=== PATIENT | female | born 1960 | race Caucasian/White ===

== ENCOUNTER 2020-05-20 11:29 | Outpatient (REF) | payer OTHER, SELFPAY ==
[2020-05-20 12:09] LABS: MANUAL DIFF FLAG NO
[2020-05-20 12:16] LABS: Basophils Percent Auto 0.6 % (0-2); Eosinophils Absolute Auto 0.1 X10*3/uL (0.0-0.4); Eosinophils Percent Auto 2.1 % (0-4); Hematocrit 42.1 % (37-47); Hemoglobin 13.7 g/dl (12.0-16.0); Imm Gran Abs Auto 0.02 X10*3/uL (0.00-0.03); Imm Gran Pct Auto 0.3 % (0.0-0.4); Lymphocytes Absolute Auto 2.5 X10*3/uL (1.2-4.9); Lymphocytes Percent Auto 37.1 % (20-40); Mean Corpuscular HGB Conc 32.5 g/dl (31.0-35.0); Mean Corpuscular Hemoglobin 26.4 pg (27.0-33.0); Mean Corpuscular Volume 81.3 fL (80-98); Mean Platelet Volume 11.6 fL (9.4-12.3); Monocytes Absolute Auto 0.4 X10*3/uL (0.1-1.2); Monocytes Percent Auto 5.5 % (2-11); Neutrophils Absolute Auto 3.7 X10*3/uL (2.0-8.3); Neutrophils Percent Auto 54.4 % (45-73); Platelet Count 358 X10*3/uL (160-400); Red Blood Count 5.18 X10*6/uL (4.20-5.50); White Blood Count 6.7 X10*3/uL (4.8-10.8)
[2020-05-20 13:36] LABS: Alanine Aminotransferase 11 U/L (0-31); Albumin Level 4.3 g/dL (3.5-5.0); Alkaline Phosphatase 88 U/L (39-117); Anion Gap 13 (12-20); Aspartate Amino Transferase 14 U/L (5-31); Bilirubin Total 0.3 mg/dL (0.0-1.0); Blood Urea Nitrogen 20 mg/dL (9-16); Calcium 9.5 mg/dL (8.4-10.2); Carbon Dioxide 24 mmol/L (22-29); Chloride 107 mmol/L (96-108); Cholesterol 212 mg/dL; Estimated Glomerular Filt Rate > 60; Glucose Random 91 mg/dL (60-115); HDL Cholesterol 54 mg/dL; LDL Cholesterol Calculated 140 mg/dl; Potassium 4.7 mmol/l (3.3-5.1); Sodium 139 mmol/L (135-145); Total Protein 6.9 g/dL (6.5-8.0); Triglycerides 91 mg/dL
== END 2020-05-20 11:30 | disposition home or self-care (01) ==
LOC: HO.LAB 11:29
PROVIDERS: PCP Family Medicine; Visit Provider Family Medicine
DX: R07.89 Other chest pain (principal)
CPT/HCPCS: 36415; 80053; 80061; 85025

== ENCOUNTER 2021-02-23 11:45 | Outpatient (RCR) | payer OTHER, SELFPAY ==
[2021-02-07 13:08] VITALS: BMI 33.8
--- NOTE | 2021-02-07 14:28 | PC.ADMIT ---
Patient is a 61 year old single female who self referred to [facility] d/t increase in depression symptoms with, per Integrated assessment, SI-thoughts to slit wrists or throw self from railing on the 7th floor however patient denied intent to follow through and agreed to contact staff if feeling unsafe. Patient told this mortgage underwriter that her family is her protective factor stating, it would kill my family therefore she would not follow through. Patient has been in treatment at [facility] in the past and found it helpful. Patient reports stressors related to the pandemic including loneliness, and isolation. Patient also reported financial stressors, pain issues r/t medical issues that are complicated d/t insurance changes last year thus unable to find new providers that patient trusts to perform needed surgery for bilateral knee replacements and R rotator cuff surgery along with needing Hiatal hernia repair. Patient also stated she was told that she needed to have her teeth repaired d/t infection before she is eligible for the surgery. Patient stated her teeth are damaged d/t increased sugar intake. Patient reports she is in the process of having dentures made. Patient stated her appointments that were scheduled for surgery on her knees was changed d/t the pandemic and there has been a shortage of staff thus unable to get needed appointments . Patient did state she has an appointment with her PCP on February 18, 2021. Patient also stated that she used to have a health center assistant however did not feel comfortable during the pandemic to let anyone in her house however since she has had the Covid Vaccine is feeling more comfortable now and is thinking about calling to make an appointment for a group home counselor again. Reports issues with hoarding and compulsive binge eating and TV watching since the pandemic with weight gain of 20 lbs with in the past 2 months. Also is stressed regarding her cat as she stated her cat has a UTI and her vet will not prescribe medication without seeing the cat and is unable to get in to see the Vet until March d/t staffing issues. Patient is alert and oriented x4. Presents with depressed mood, anxious, irritable affect. Denied SI at present. Reports thoughts do come up however would not follow through as her family is her protective factor. Patient does not want support at this time with finding a new PCP or home health registered nurse first assistant etc. Patient aware that she can contact staff if she changes her mind. Medications reconciled with patient and patient's pharmacy.
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
--- NOTE | 2021-02-14 11:30 | PC.NURSE ---
With pt's permission, I called [facility] health to see if they have an binge eating IOP that will take her insurance. They said they do have an IOP specifically for binge eating, and that it is 3 days per week from 5:30 to 8pm. I can fax demographic information to [phone] and they will reach out to pt to set up an intake. They do take [facility].
--- NOTE | 2021-02-14 11:37 | PC.NURSE ---
At pt's request, I called [facility] to refer pt for a [facility] worker. Staff said they will email me paperwork to fill out for this.
--- NOTE | 2021-02-16 12:41 | HO.PHPPROGNO ---
Subjective Subjective Date of Service: 02/16/21 Reason For Visit: PTSD, Depression, OCD Interim History: The patient reported that she started Risperdal 0,5 mg with no side effects but still symptomatic with binge eating of carbohydrates. We discussed her previous trials of AD and apparently she had 2 courses of TCA's with imipramine, the first time 20 years ago and later a few years ago. She has never tried clomipramine Review of Systems Review of Systems Yes all other systems are reviewed and are negative Mental Status Exam Mental Status Exam Patient Appearance: Well Grooomed Patient Orientation: Person, Place, Time and Situation Level of Consciousness: Awake Patient Behavior: Appropriate Mood Description: Appropriate and Anxious Affect Description: Constricted Patient Cognition Impaired: No Ability to Follow Directions: Good Speech Pattern: Clear Memory Description: Intact Delusions: Not Present Thought Process: Goal Oriented Thought Content: positive for Obsessional Thoughts Depressive Symptoms: Increased Anxiety Judgement: Fair Diagnostics Vital Signs (24Hr): Body Mass Index 33.8 Assessment & Plan Assessment & Plan (1) MDD (major depressive disorder), recurrent episode, severe: Status: Acute Code(s): F33.2 - Major depressive disorder, recurrent severe without psychotic features Assessment and Plan: Adult female with PTSD, MDD and hoarding behavior, recently started on Risperdal. Plan: Increase Risperdal up to 1 mg po daily. In the future, consider the use of Clomipramine for OCD like symptoms (2) PTSD (post-traumatic stress disorder): Status: Acute Code(s): F43.10 - Post-traumatic stress disorder, unspecified (3) Binge eating disorder: Status: Acute Code(s): F50.81 - Binge eating disorder (4) Hoarding disorder: Status: Acute Code(s): F42.3 - Hoarding disorder Certification I certify that partial hospital treatment is medically necessary due to the symptoms and problems resulting from the patient's mental illness and the failure to treat the patient at the partial hospital level of care would likely result in the patient requiring inpatient psychiatric care which could not be prevented at a less intensive level of care. Greater than 50% of the session was spent on counseling and/or coordination of care Discharge Plan Discharge Attending provider: Nuno Sue Primary Care Provider: Arnulfo Guerrero Medications: New risperidone [Risperdal] 1 mg tablet 1 mg PO DAILY 14 Days Qty: 14 RF: 0 Discontinued risperidone [Risperdal] 0.5 mg Tablet 0.5 mg PO DAILY PRN (Reason: Anxiety) RF: 0 No Action rabeprazole 20 mg Tablet,Delayed Release (Dr/Ec) 20 mg PO BID RF: 0 Referrals: Arnulfo Guerrero MD [Primary Care Provider] - 1 Week Telehealth Telehealth Location of provider rendering services: practice address Location of patient: address on file Patient Identification confirmed using: Name, : No Telehealth method: video Patient verbally consented to treatment: Yes Patient verbally consented to billing insurance company: Yes Patient informed of any privacy concerns related to visit: No Time spent with patient (mins): 15
--- NOTE | 2021-02-23 12:42 | HO.PHPPROGNO ---
Subjective Subjective Date of Service: 02/23/21 Reason For Visit: PTSD, Depression, OCD Subjective Notes: Conditional Voluntary Interim History: The patient reported feeling detached with the Risperdal and she has been still eating as comfort. She has gained 30 lb in the last 3 months. Mental Status Exam Mental Status Exam Patient Appearance: Well Grooomed Patient Orientation: Person, Place, Time and Situation Level of Consciousness: Awake Patient Behavior: Appropriate Mood Description: Calm Affect Description: Calm and Depressed Patient Cognition Impaired: No Ability to Follow Directions: Good Speech Pattern: Clear Memory Description: Intact Hallucinations: None Delusions: Not Present Thought Process: Goal Oriented Thought Content: positive for Circumstantial and positive for Goal Oriented Judgement: Fair Diagnostics Vital Signs (24Hr): Body Mass Index 33.8 Assessment & Plan Assessment & Plan (1) Binge eating disorder: Status: Acute Code(s): F50.81 - Binge eating disorder (2) Hoarding disorder: Status: Acute Code(s): F42.3 - Hoarding disorder Assessment and Plan: Adult female with OCD and hoarding disorder, failed to Risperdal, now on Clomipramine Certification I certify that partial hospital treatment is medically necessary due to the symptoms and problems resulting from the patient's mental illness and the failure to treat the patient at the partial hospital level of care would likely result in the patient requiring inpatient psychiatric care which could not be prevented at a less intensive level of care. Greater than 50% of the session was spent on counseling and/or coordination of care Discharge Plan Discharge Attending provider: Nuno Sue Primary Care Provider: Arnulfo Guerrero Medications: New clomipramine 25 mg capsule 25 mg PO DAILY 7 Days Qty: 7 RF: 1 Discontinued risperidone [Risperdal] 0.5 mg Tablet 0.5 mg PO DAILY PRN (Reason: Anxiety) RF: 0 No Action rabeprazole 20 mg Tablet,Delayed Release (Dr/Ec) 20 mg PO BID RF: 0 Referrals: Arnulfo Guerrero MD [Primary Care Provider] - 1 Week Telehealth Telehealth Location of provider rendering services: practice address Location of patient: address on file Patient Identification confirmed using: Name, : Yes Telehealth method: video Patient verbally consented to treatment: Yes Patient verbally consented to billing insurance company: Yes Patient informed of any privacy concerns related to visit: No Time spent with patient (mins): 15
--- NOTE | 2021-02-23 14:10 | PC.NURSE ---
I called pt and left a message asking her to pls call and offering some more time on program. Pt continues to struggle with symptoms and is making effective use of program.
[2021-02-28 15:20] VITALS: BMI 33.8
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
[2021-02-28 17:08] VITALS: BMI 33.8
--- NOTE | 2021-02-28 17:44 | PC.ADMIT ---
61 year old female readmit to PHP today. Patient reports worsening anxiety, depression, compulsive eating. Reports unplanned weight gain, poor sleep, only four hours most nights. States she feels exhausted. Patient denies SI or HI. Reports no AH/VH. States PHP helpful and is in agreement with readmission. Medications reconciled with pharmacy and patient.
== END 2021-02-25 23:55 | disposition home or self-care (01) ==
LOC: HO.PHPA 11:45
PROVIDERS: PCP Family Medicine; Visit Provider Psychiatry & Neurology Psychiatry
DX: F33.2 Major depressive disorder, recurrent severe without psychotic features (principal); F42.3 Hoarding disorder; F50.81 Binge eating disorder; F43.10 Post-traumatic stress disorder, unspecified; Z79.899 Other long term (current) drug therapy
CPT/HCPCS: 90791; 90853

== ENCOUNTER 2021-03-04 11:45 | Outpatient (RCR) | payer OTHER, SELFPAY ==
--- NOTE | 2021-02-28 14:22 | PC.NURSE ---
Case re-opened in treatment team
[2021-03-01 10:08] VITALS: BMI 33.8
--- NOTE | 2021-03-01 11:56 | PC.ADMIT ---
61 Year old female readmit to [facility]. History of Depression, Anxiety, PTSD. Patient lives by herself, has supportive family. Does not work is on Disability. Patient reports worsening anxiety, depression and compulsive eating. Patient reports she has gained 20lbs in last two months. Patient states she is glad for the readmission to [facility], states recent participation in program has been helpful Patient has hx of alcohol use disorder but states she has been sober since 1983 Patient denies any substance use, states she used marijuana once in December All medications were reconciled and reviewed with patient. Patient states understanding of medication teaching. Patient medical history includes: Arthritis of both knees will need bilateral TKR per patient, Asthma, Fibromyalgia, GERD, Hiatal Hernia, Injury of right rotater cuff surgically repaired, shoulder surgery, Hysterectomy. Patient denies SI, states she would reach out for help if she had feelings of harming herself. Patient states she is close to her siblings and would never do that to her family Patient denies hallucinations. Admission orders per DANYELLE Echeverria.
--- NOTE | 2021-03-02 12:43 | P.PNPSP_ITS ---
Subjective Subjective Date of Service: 03/02/21 Reason For Visit: PTSD, Depression, OCD Interim History: The patient reported mild oversedation with Clomipramine, so far, still with OCD symptoms and overeating. Review of Systems Acute medical concerns: No Medical Review of Systems: unchanged Mental Status Exam Mental Status Exam Patient Appearance: Well Grooomed Patient Orientation: Person, Place, Time and Situation Level of Consciousness: Awake and Appropriate Patient Behavior: Appropriate Mood Description: Calm Affect Description: Anxious Patient Cognition Impaired: No Ability to Follow Directions: Good Speech Pattern: Clear Memory Description: Intact Hallucinations: None Delusions: Not Present Thought Process: Goal Oriented Thought Content: positive for Intact Judgement: Fair Diagnostics Vital Signs (24Hr): Body Mass Index 33.8 Assessment & Plan Assessment & Plan (1) MDD (major depressive disorder), recurrent episode, severe: Status: Acute Code(s): F33.2 - Major depressive disorder, recurrent severe without psychotic features Assessment and Plan: Middle age female with MDD, Binge eating disorder, remote alcohol use disorder and hoarding, referred from primary prescriber for exacerbation of her symptoms. Started on Clomipramine with fair tolerability but still symptomatic. Plan: Increase Clomipramine up to 50 mg po qhs Consider Naltrexone for binge eating/OCD like symptoms? (2) PTSD (post-traumatic stress disorder): Status: Acute Code(s): F43.10 - Post-traumatic stress disorder, unspecified (3) Binge eating disorder: Status: Acute Code(s): F50.81 - Binge eating disorder (4) Hoarding disorder: Status: Acute Code(s): F42.3 - Hoarding disorder Certification I certify that partial hospital treatment is medically necessary due to the symptoms and problems resulting from the patient's mental illness and the quiana lure to treat the patient at the partial hospital level of care would likely result in the patient requiring inpatient psychiatric care which could not be prevented at a less intensive level of care. Greater than 50% of the session was spent on counseling and/or coordination of care Discharge Plan Discharge Attending provider: Nuno Sue Medications: New clomipramine 50 mg capsule 50 mg PO DAILY 14 Days Qty: 14 RF: 0 Discontinued clomipramine 25 mg capsule 25 mg PO DAILY 7 Days Qty: 7 RF: 1 No Action rabeprazole 20 mg Tablet,Delayed Release (Dr/Ec) 20 mg PO BID RF: 0 estradiol [Yuvafem] 10 mcg tablet 10 mcg vaginal DIRECTED RF: 0 Telehealth Telehealth Location of provider rendering services: practice address Location of patient: address on file Patient Identification confirmed using: Name, : Yes Telehealth method: video Patient verbally consented to treatment: Yes Patient verbally consented to billing insurance company: Yes Patient informed of any privacy concerns related to visit: No Time spent with patient (mins): 15
--- NOTE | 2021-03-04 14:14 | PC.NURSE ---
I called and left a message for pt's therapist at [facility], Cortez Ulrich ([phone]). I informed him of pt's successful discharge from [facility] today.
--- NOTE | 2021-03-04 15:00 | P.PNPSP_ITS ---
Subjective Subjective Date of Service: 03/04/21 Reason For Visit: PTSD, Depression, OCD. I'm tired but okay . Subjective Notes: Bautista Warning Guardianship: No Medical Problems Affecting Mental Status: No Interim History: Patient reports she is still adjusting to increased clomipramine dose, and taking it at night. She says that it appears to be helping manage her OCD, but that she is experiencing some sedation as my body adjusts to it . She states that she feels ?a little bit overwhelmed regarding her OCD, hoarding, and waiting for the housing to complete their home inspection. Otherwise, she reports she continues with depression, but states that it is manageable. Denies any thoughts of harm to self or others, no safety concerns. No overeating reported. No refills needed. Patient will continue with outpatient providers going forward, as today is last day in [facility]. Medication Compliance: Yes Side effects from medications: Yes (some mild sedation, reports it is minimal) Attending Groups: Yes Review of Systems Review of Systems Well-nourished, well-developed female, no apparent distress. Reports some mild sedation as she is adjusting to new medication dose, otherwise review of systems negative. Yes all other systems are reviewed and are negative Mental Status Exam Mental Status Exam Patient Appearance: Well Grooomed and Fatigued (somewhat, reports it is manageable, mild. ) Patient Orientation: Person, Place, Time and Situation Level of Consciousness: Appropriate and Alert Patient Behavior: Appropriate, Cooperative and Good Eye Contact Mood Description: Appropriate, Depressed and Anxious Affect Description: Appropriate, Depressed and Anxious Patient Cognition Impaired: No Ability to Follow Directions: Excellent Speech Pattern: Clear, Appropriate, Spontaneous Speech and Coherent Memory Description: Intact Hallucinations: None Delusions: Not Present Thought Process: Intact, Goal Oriented and Linear Thought Content: positive for Intact, positive for Obsessional Thoughts (present, although lessened/improved), positive for Goal Oriented and positive for Linear Depressive Symptoms: Increased Anxiety, Diff. Making Decisions, Changes in Appetite and Thoughts of /Suicide (denies any thought of self-harm) Judgement: Good Judgement and Insight: Overall judgment and insight have improved. Diagnostics Vital Signs (24Hr): Body Mass Index 33.8 Assessment & Plan Assessment & Plan (1) MDD (major depressive disorder), recurrent episode, severe: Status: Acute Code(s): F33.2 - Major depressive disorder, recurrent severe without psychotic features Assessment and Plan: Patient reports overall symptoms have improved somewhat. No complaints at this time. Patient has outpatient appointments are scheduled. Also [facility]. No medication changes at this time. No safety concerns. (2) Binge eating disorder: Status: Acute Code(s): F50.81 - Binge eating disorder (3) Hoarding disorder: Status: Acute Code(s): F42.3 - Hoarding disorder Patient educated on: diagnosis, medication risk/benefits and therapeutic strategies Informed Consent: understands Reason for contiued partial hosp. stay Substantial Risk for: stable for discharge Certification I certify that partial hospital treatment is medically necessary due to the symptoms and problems resulting from the patient's mental illness and the failure to treat the patient at the partial hospital level of care would likely result in the patient requiring inpatient psychiatric care which could not be prevented at a less intensive level of care. Greater than 50% of the session was spent on counseling and/or coordination of care Discharge Plan Discharge Attending provider: Nuno Sue Additional Instructions: Appointment with therapist, Cortez watters at [facility] ([phone]) on , 03/10/21 at 10am. Appointment with medication provider Dinah Segundo MD ([phone]) on 03/23/21 at 12 noon. Intake appointment for [facility]o binge eating disorder [facility] on 03/16/21 at 10am. Medications: New clomipramine 50 mg capsule 50 mg PO DAILY 14 Days Qty: 14 RF: 0 Discontinued clomipramine 25 mg capsule 25 mg PO DAILY 7 Days Qty: 7 RF: 1 No Action rabeprazole 20 mg Tablet,Delayed Release (Dr/Ec) 20 mg PO BID RF: 0 estradiol [Yuvafem] 10 mcg tablet 10 mcg vaginal DIRECTED RF: 0 Stand Alone Forms: Patient Portal Discharge page Telehealth Telehealth Location of provider rendering services: practice address Location of patient: address on file Patient Identification confirmed using: Name, : Yes Telehealth method: video Patient verbally consented to treatment: Yes Patient verbally consented to billing insurance company: Yes Patient informed of any privacy concerns related to visit: Yes Time spent with patient (mins): 15
== END 2021-03-07 07:52 | disposition home or self-care (01) ==
LOC: HO.PHPA 11:45
PROVIDERS: Visit Provider Psychiatry & Neurology Psychiatry
DX: F33.2 Major depressive disorder, recurrent severe without psychotic features (principal); F43.10 Post-traumatic stress disorder, unspecified; F50.81 Binge eating disorder; F42.3 Hoarding disorder
CPT/HCPCS: 90791; 90853

== ENCOUNTER 2021-09-08 10:44 | Outpatient (REF) | payer OTHER, SELFPAY ==
[2021-09-08 11:03] LABS: MANUAL DIFF FLAG NO
[2021-09-08 11:38] LABS: Basophils Percent Auto 0.5 % (0-2); Eosinophils Absolute Auto 0.2 X10*3/uL (0.0-0.4); Eosinophils Percent Auto 2.3 % (0-4); Hematocrit 40.7 % (37.0-47.0); Imm Gran Abs Auto 0.03 X10*3/uL (0.00-0.03); Imm Gran Pct Auto 0.3 % (0.0-0.4); Lymphocytes Absolute Auto 2.8 X10*3/uL (1.2-4.9); Mean Corpuscular HGB Conc 31.9 g/dl (31.0-35.0); Mean Corpuscular Hemoglobin 25.2 pg (27.0-33.0); Mean Platelet Volume 11.1 fL (9.4-12.3); Monocytes Absolute Auto 0.6 X10*3/uL (0.1-1.2); Monocytes Percent Auto 6.5 % (2-11); Neutrophils Absolute Auto 5.1 x10*3/uL (2.0-8.3); Neutrophils Percent Auto 58.4 % (45-73); Platelet Count 333 X10*3/uL (160-400); Red Blood Count 5.15 X10*6/uL (4.20-5.50); Red Cell Distribution Width 14.8 % (11.0-16.0); White Blood Count 8.7 X10*3/uL (4.8-10.8)
[2021-09-08 12:15] LABS: Alanine Aminotransferase 14 U/L (0-31); Albumin Level 4.2 g/dL (3.5-5.0); Alkaline Phosphatase 108 U/L (39-117); Anion Gap 12 (12-20); Aspartate Amino Transferase 16 U/L (5-31); Bilirubin Total 0.4 mg/dL (0.0-1.0); Blood Urea Nitrogen 15 mg/dL (9-16); Calcium 9.7 mg/dL (8.4-10.2); Carbon Dioxide 24 mmol/L (22-29); Chloride 106 mmol/L (96-108); Cholesterol 269 mg/dL; Estimated Glomerular Filt Rate > 60; Glucose Random 98 mg/dL (60-115); HDL Cholesterol 59 mg/dL; LDL Cholesterol Calculated 158 mg/dl; Potassium 4.4 mmol/L (3.3-5.1); Sodium 138 mmol/L (135-145); Total Protein 7.2 g/dL (6.5-8.0); Triglycerides 261 mg/dL
[2021-09-08 12:16] LABS: Erythrocyte Sedimentation Rate 20 MM/HR (0-20); Thyroid Stimulating Hormone 1.65 uIU/mL (0.32-4.0)
== END 2021-09-08 10:45 | disposition home or self-care (01) ==
LOC: HO.LAB 10:44
PROVIDERS: PCP Family Medicine; Visit Provider Family Medicine
DX: R42 Dizziness and giddiness (principal)
CPT/HCPCS: 36415; 80053; 80061; 84443; 85025; 85652

== ENCOUNTER 2022-10-26 07:00 | Outpatient (RCR) | payer OTHER, SELFPAY | END 2022-11-10 14:16 | disposition home or self-care (01) | LOC: HO.PT 07:00 | PROVIDERS: PCP Family Medicine; Visit Provider Orthopaedic Surgery | DX: M75.41 Impingement syndrome of right shoulder (principal) | CPT/HCPCS: 97110; 97161; 97530 ==

== ENCOUNTER 2023-07-31 09:00 | Outpatient (RCR) | payer OTHER, SELFPAY | END 2023-09-25 13:05 | disposition home or self-care (01) | LOC: HO.PT 09:00 | PROVIDERS: PCP Family Medicine; Visit Provider Family Medicine | DX: M54.6 Pain in thoracic spine (principal) | CPT/HCPCS: 97110; 97140; 97162 ==

== ENCOUNTER 2023-12-06 10:00 | Outpatient (RCR) | payer OTHER, SELFPAY | END 2024-01-16 09:41 | disposition home or self-care (01) | LOC: HO.PT 10:00 | PROVIDERS: PCP Nurse Practitioner Primary Care; Visit Provider Nurse Practitioner Primary Care | DX: M54.6 Pain in thoracic spine (principal); G89.29 Other chronic pain | CPT/HCPCS: 97110; 97140; 97162 ==